=== PATIENT | male | born 1960 | race Caucasian/White ===

== ENCOUNTER → 2017-11-09 10:01 | Outpatient (CLI) | payer OTHER, SELFPAY | PROVIDERS: Referring Provider Dermatology Pediatric Dermatology; Visit Provider Dermatology Pediatric Dermatology | DX: L01.01 Non-bullous impetigo (principal); D48.5 Neoplasm of uncertain behavior of skin | CPT/HCPCS: 87070; 87077; 87186; 87205 ==

== ENCOUNTER 2020-04-15 13:15 | Observation (INO) | payer OTHER, SELFPAY ==
[2020-04-15 13:17] VITALS: BP 156/84; PULSE 85; RESP 16; TEMP 35.9; O2SAT 97; BMI 35.6
[2020-04-15 13:28] VITALS: BMI 35.6
--- NOTE | 2020-04-15 13:28 | EKG12_ITS ---
Test Reason : Blood Pressure : / mmHG Vent. Rate : 070 BPM Atrial Rate : 070 BPM P-R Int : 194 ms QRS Dur : 106 ms QT Int : 392 ms P-R-T Axes : 044 009 019 degrees QTc Int : 423 ms Normal sinus rhythm Normal ECG Confirmed by FÁTIMA ABERNATHY, ENID ([id number]), multimedia editor SUDHEER DOE ([id number]) on 04/17/2020 10:59:43 AM Referred By: JACKIE Confirmed By:ENID SHINE MD
--- NOTE | 2020-04-15 13:28 | CT_ITS ---
STUDY: CT BRAIN WITHOUT CONTRAST REASON FOR EXAM: Male, 59 years old. tremors RADIATION DOSAGE (If Supplied By Facility): CTDIvol = ( 60.81 ) mGy, DLP = ( 1067.08 ) mGycm TECHNIQUE: Transaxial CT imaging of the brain was performed without administration of intravenous contrast material. Individualized dose optimization techniques were used for this CT. COMPARISON: No relevant priors. FINDINGS: Normal soft tissue structures. Normal calvarium. Normal size ventricles and extra-axial spaces for the patient''s age. Normal white matter tracts of the cerebral hemispheres. Normal basal ganglia and thalami. Normal brainstem. Normal cerebellum. There is no intracranial hemorrhage. There are no findings of an acute ischemic infarction. Normal visualized paranasal sinuses. CT/Brain/Head without Contrast IMPRESSION: Normal unenhanced CT scan of the brain. Electronically Signed: Jaun Islas MD at 14:38 EST Tel , Service support ,
--- NOTE | 2020-04-15 13:30 | ED.DCSUM_ITS ---
History of Present Illness Chief Complaint: Neuro S/Sx Informant: Patient Onset: Days Context: Gradual Onset Timing: Intermittent Current Severity: Moderate Maximum Severity: Severe Narrative: The patient is a 59-year-old male with medical history significant for hypertension and diabetes who presents to the emergency department with repetitive involuntary muscle contraction. He states that for the past few months, he will get intermittent jerking of his upper extremities. He states it is rhythmic but will never generalized. He states it comes at different times. He did see the nurse practitioner for his primary care last week. He was given clonazepam. He states he takes it sometimes, but it does not seem like it helps. He states today, he was at work and he got more repetitive. He states that he does feel almost like his arms are weak and clumsy. He denies headache or visual change. He denies weight loss or night sweats. He denies trouble speaking or swallowing. Prior similar symptoms: Yes Recent Illness/Hospitalization: No Past Medical History - Allergies and Home Meds Allergies/Adverse Reactions: Allergies No Known Allergies Allergy (Verified 04/15/20 13:18) Primary Care Physician: Gerard Matthew ASSESSMENT RN, ASSESSMENT RN-C [Primary Care Provider] - Prior records reviewed: Yes Past Medical History: - - Diabetes, hypertension Surgical History: noncontributory Smoking Status: Never smoker Review of Systems General: Denies: Chills, Fever, Sweats Eyes: Denies: Visual changes - bilaterally, Diplopia ENT: Denies: Rhinorrhea, Sore throat Cardiovascular: Denies: Chest pain, Palpitations Respiratory: Denies: Dyspnea, Cough, Dyspnea on exertion Gastrointestinal: Denies: Abdominal pain, Nausea, Vomiting, Diarrhea, Melena, Hematochezia Genitourinary: Denies: Dysuria, Hematuria, Frequency Musculoskeletal: Denies: Back pain, Extremity Pain Skin: Denies: Rash, Wounds Neurological: Reports: Weakness, Parasthesia. Denies: Headache, Numbness Physical Exam Vital Signs/Narrative: Vital Signs Temp Pulse Resp BP Pulse Ox 04/15/20 13:17 96.6 F L 85 16 156/84 H 97 Inital Vital Signs reviewed: Yes General: Well nourished, Well developed, No Acute Distress Head: Normocephalic, Atraumatic Eyes: Perrl, EOMI ENT: Moist mucous membranes, No rhinorrhea Neck: Supple, Nontender Cardiovascular: Regular rate, Regular rhythm, No murmurs Respiratory: No distress, CTA bilaterally, Chest nontender Abdomen: Soft, Nontender, Nondistended, Normal bowel sounds Back: Nontender, Normal Inspection Extremities: Nontender, No edema Skin: Normal color, No rash Neurological: Alert, Oriented x3, Cranial nerves II-XII grossly intact, Normal Strength, Normal Sensation Psychological: Normal affect, Normal Mood Diagnostic/Tx/Re-eval Abnormal Lab Results 04/15/20 04/15/20 13:37 13:37 WBC 7.6 RBC 4.53 L Hgb 12.7 L Hct 39.3 L MCV 86.8 MCH 28.0 MCHC 32.3 RDW Std Deviation 41.4 RDW Coeff of Ada 13.2 Plt Count 287 MPV 9.4 Immature Gran % (Auto) 0.300 Neut % (Auto) 66.0 Lymph % (Auto) 22.8 [place] % (Auto) 6.4 Eos % (Auto) 4.1 Baso % (Auto) 0.4 Absolute Neuts (auto) 5.0 Absolute Lymphs (auto) 1.72 Nucleated RBC % 0 Sodium 138 Potassium 4.3 Chloride 108 H Carbon Dioxide 24.0 Anion Gap 6 BUN 19 H Creatinine 1.11 Estim Creat Clear Calc 82.28 Est GFR (MDRD) Af Amer 87 Est GFR (MDRD) Non-Af 72 BUN/Creatinine Ratio 17.1 Glucose 145 H Calcium 8.6 Magnesium 1.8 Total Bilirubin 0.50 AST 18 ALT 21 Alkaline Phosphatase 59 Total Protein 6.5 Albumin 3.7 Globulin 2.8 Albumin/Globulin Ratio 1.3 - Medical Decision Making Patient has been having tremor for a few months, but it is increased in frequency and duration. He is hyperreflexic in his upper extremities. He also gets feelings of weakness. Metabolic work-up was pursued and was unremarkable. Noncontrast head CT reviewed by myself shows no acute or normality. Final radiology read is pending. I do have concern for underlying neurologic disorder. The patient has had increasing weakness now after these events. I do feel that he would benefit from observation for MRI of his head and neck. Patient was discussed with the hospitalist. Impression 1. Bilateral upper extremity weakness ED Disposition - Plan for ED Patient: Referrals: Gerard Matthew ASSESSMENT RN, ASSESSMENT RN-C [Primary Care Provider] -
[2020-04-15 13:48] LABS: Absolute Lymphocyte Count 1.72 X10^3/uL (0.83-4.51); Basophil# 0.03 X10^3/uL; Basophil% 0.4 % (0-1); Eosinophil# 0.31 X10^3/uL; Eosinophils% 4.1 % (0-5); Hematocrit 39.3 % (40-54); Hemoglobin 12.7 g/dL (13.0-16.5); Lymphocyte # 1.72 X10^3/ul (4.0); Lymphocyte % 22.8 % (19-41); Mean Corp Hgb Conc 32.3 g/dL (32-36); Mean Corpuscular Volume 86.8 fL (80-94); Mean Platelet Vol. 9.4 fl (6.2-12.0); Monocyte# 0.48 X10^3/uL; Monocyte% 6.4 % (0-10); NRBC Flagged by Analyzer 0 % (0-5); Neutrophil # 4.99 X10^3/uL (2.7-7.7); Platelet Count 287 K/mm3 (150-450); RBC Distribution Width CV 13.2 % (11.6-14.6); RBC Distribution Width SD 41.4 fl (35.1-43.9); Red Blood Count 4.53 M/mm3 (4.6-6.2); White Blood Count 7.6 K/mm3 (4.4-11.0)
--- NOTE | 2020-04-15 13:55 | RAD_ITS ---
STUDY: X-RAY CHEST REASON FOR EXAM: Male, 59 years old. sob TECHNIQUE: Single AP portable view of the chest. COMPARISON: None. FINDINGS: The lungs are clear and expanded. There is no demonstrated pleural abnormality. Normal size heart. Normal mediastinum and josesito. Normal visualized pulmonary arteries. Normal visualized aortic arch and descending thoracic aorta. There are diffuse degenerative changes of the visualized thoracic spine. There is degenerative osteoarthritis of the bilateral shoulders. There is no demonstrated abnormality of the visualized soft tissue structures of the upper abdomen. RAD/Chest 1 View (Portable) IMPRESSION: Degenerative changes, as described above. No demonstrated acute cardiopulmonary process. Electronically Signed: Jaun Islas MD at 14:43 EST Tel , Service support ,
[2020-04-15 14:04] LABS: ALB/GLOB Ratio 1.3 RATIO (0.9-2.4); AST(SGOT) 18 U/L (15-37); Alanine Aminotransfer ALT/SGPT 21 U/L (16-61); Albumin, Serum 3.7 g/dL (3.2-5.0); Alkaline Phosphatase 59 U/L (45-117); Anion Gap 6 (5-15); BUN 19 mg/dL (7-18); BUN/Creat Ratio 17.1 RATIO (10-20); Calcium,Total 8.6 mg/dL (8.5-10.1); Chloride 108 mmol/L (98-107); Creatinine, Serum 1.11 mg/dL (0.70-1.30); EST Glomerular Filtration Rate 72 mL/min (>60); Est Glom Filt Rate - Afr Amer 87 mL/min (>60); Estimated Creatinine Clearance 82.28 ml/min; Globulin 2.8 g/dL (2.2-4.2); Glucose 145 mg/dL (74-106); Magnesium 1.8 mg/dL (1.6-2.6); Potassium 4.3 mmol/L (3.5-5.1); Protein, Total 6.5 g/dL (6.4-8.2); Sodium Level 138 mmol/L (136-145)
[2020-04-15 15:15] VITALS: BP 136/77; PULSE 72; RESP 15; TEMP 36.6; O2SAT 95
--- NOTE | 2020-04-15 15:27 | MRI_ITS ---
STUDY: MRI BRAIN WITHOUT CONTRAST REASON FOR EXAM: Male, 59 years old. UE weakness TECHNIQUE: Standardized multiplanar fat and water weighted pulse sequences were obtained. COMPARISON: CT brain 04/15/2020 FINDINGS: There is mild cerebral atrophy with widening of the extra-axial spaces and ventricular dilatation. Normal white matter tracts of the supratentorial brain. There is no evidence for recent intracranial ischemia or other cause of cytotoxic edema on diffusion weighted imaging (DWI). Normal bilateral basal ganglia. Normal thalami. There is no extra-axial fluid accumulation. Normal flow voids within the major intracranial circulation suggesting patency by spin echo criteria. Normal sella turcica, pituitary gland, infundibular stalk, optic chiasm and hypothalamus. Normal tectal plate and pineal gland. Normal midbrain, herson and medulla. Normal cerebellum. Normal basal cisterns. Normal bilateral temporal bones. Normal bilateral internal auditory canals. No demonstrated orbital abnormality, within the constraints of a routine brain study. Normal visualized paranasal sinuses. Normal calvarium and skull base. Normal visualized soft tissue structures. Normal visualized upper cervical spine. MRI/Brain without Contrast IMPRESSION: Involutional changes of the brain, as described above. Electronically Signed: Raphael Sellers MD at 23:09 EST , Service support ,
--- NOTE | 2020-04-15 15:27 | MRI_ITS ---
STUDY: MRI CERVICAL SPINE WITHOUT CONTRAST REASON FOR EXAM: Male, 59 years old. UE weakness TECHNIQUE: Standardized fat and water weighted pulse sequences were obtained in the sagittal and axial planes. COMPARISON: None FINDINGS: Normal foramen magnum and brainstem-cervical cord junction. Normal craniovertebral junction. Normal anterior atlantoaxial articulation. Normal odontoid process. Normal cervical lordosis. Normal vertebral bodies and posterior osseous elements. C2-3: Normal endplates. Normal disc height, signal and morphology. Normal central canal and intervertebral neural foramina. C3-4: Normal endplates. Normal disc height, signal and morphology. Normal central canal and intervertebral neural foramina. C4-5: Normal endplates. Normal disc height, signal and morphology. Normal central canal and intervertebral neural foramina. C5-6: Spondylitic endplates. Normal disc height, signal and morphology. Normal central canal and intervertebral neural foramina. C6-7: Spondylitic endplates. Normal disc height, signal and morphology. Normal central canal and mild narrowing bilateral intervertebral neural foramina. C7-T1: Normal endplates. Normal disc height, signal and morphology. Normal central canal and intervertebral neural foramina. Normal cervical cord. Normal visualized soft tissue structures. MRI/Spine Cervical (Routine) IMPRESSION: Mild bilateral neural foraminal narrowing C6-7 and spondylosis Electronically Signed: Raphael Sellers MD at 20:35 EST , Service support ,
[2020-04-15 15:32] VITALS: BP 150/76; PULSE 72; RESP 16; TEMP 36.1; O2SAT 99
[2020-04-15 15:34] VITALS: BMI 34.9
[2020-04-15 15:41] VITALS: BMI 35.0
--- NOTE | 2020-04-15 15:42 | PCM.HP.STD ---
Problem List (1) Twitching Status: Acute (2) Diabetes Status: Chronic (3) Depression Status: Chronic (4) GERD (gastroesophageal reflux disease) Status: Chronic (5) RLS (restless legs syndrome) Status: Chronic (6) Hyperlipemia Status: Chronic (7) HTN (hypertension) Status: Chronic History of Present Illness Date of Admission: 04/15/20 Mr. Wick is a 59 year old WM with a past medical history of diabetes who was maintained on an insulin pump and oral medications, pretension, hyperlipidemia, GERD, restless leg syndrome, depression and anxiety who presented to the emergency department [facility] in 04/15/2020 complaint of bilateral predominantly upper extremity rhythmic muscle twitching. He states that he has been having issues with this for approximately 2 months he states that it is completely involuntary and has disrupted his sleep at times. He states that in the last 2 months got worse; initially his symptoms were only occurring when he lie down to go bed at night but as of recently it has been happening periodically throughout the day and is disrupting his daily life. He states that it is predominately upper extremity the rhythmic and repetitive muscle jerking. Usually happens when he is at rest. He has no prodrome. He was seen by a nurse practitioner at his PCPs office and was told that they were initiating a statin neurology consult but that was approximately a week ago and nothing has been set up as of yet. He has had no other work-up for this. 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 He states he has noticed a little bit of balance issues when he is drying his head off in the shower and has to rest his arm against the wall to maintain balance. He does admit to history of neuropathy in his feet. On exam he had no significant sensory deficits bilateral feet. His vital signs in the emergency department show a mild hypertension with blood pressures systolic 150s. His laboratory data was overall unremarkable. A CK was done and was within normal limits. His EKG was normal sinus rhythm without any ST-T wave changes. A CT of his head was performed and was normal. Chest x-ray was performed to rule out any other intrathoracic issues that could be leading to this etiology and it was negative as well. He will be admitted to [facility] for further neurological work-up to include MRI of head and neck and an EEG. Past Medical History Past Medical History (Chronic Problems): Chronic Problems Diabetes (Chronic) Depression (Chronic) GERD (gastroesophageal reflux disease) (Chronic) RLS (restless legs syndrome) (Chronic) Hyperlipemia (Chronic) HTN (hypertension) (Chronic) Allergies No Known Allergies Allergy (Verified 04/15/20 13:18) Home Medications: Ambulatory Orders Medication Instructions Recorded Citalopram [Celexa] 40 mg PO DAILY 04/15/20 Clonazepam 0.5 mg PO QHS 04/15/20 Dapagliflozin Propanediol [Farxiga] 10 mg PO DAILY 04/15/20 Enalapril Maleate 20 mg PO DAILY 04/15/20 Insulin Lispro [Humalog Kwikpen] 50 - 75 unit INFILT DAILY 04/15/20 Lansoprazole 15 mg NG DAILY 04/15/20 Metformin HCl [Metformin HCl ER] 1,500 mg PO DAILY 04/15/20 Metformin HCl [Metformin HCl ER] 500 mg PO DAILY 04/15/20 Pramipexole Di-HCl [Mirapex] 1 mg PO QHS 04/15/20 Simvastatin 40 mg PO QHS 04/15/20 Trazodone HCl 100 mg PO QHS 04/15/20 Surgical History: noncontributory Psychiatric History: Anxiety, Depression Lives: Spouse/ Significant Other Smoking Status: Never smoker Tobacco Use: Non-smoker Alcohol: Rare Drugs: None - *Family History Maternal History Items: No pertinent history, - - Of seizures or neuromuscular disorders Paternal History Items: No pertinent history, - - History of seizures or neuromuscular disorders Review of Systems Constitutional: Denies: Anorexia, Chills, Fever, Night Sweats, Malaise, Weakness, Weight Change, Fatigue Eyes: Denies: Blurred vision, Cataracts, Conjunctivae Inflammation, Double vision, Drainage, Eyelid Inflammation, Pain, Redness, Vision Change HEENT: Denies: Difficulty Hearing, Difficulty Swallowing, Ear Pain, Eye Pain, Head Aches, Nasal bleeding, Nasal Congestion, Post Nasal Drip, Sinus Congestion, Sinus Drainage, Sore Throat, Visual Changes Cardiovascular: Denies: Chest Pain, Claudication, Chest Pressure, Chest Tightness, Edema, Heaviness, Light Headedness, Orthopnea, Palpitations, Paroxysmal Noc. Dyspnea, Syncope Respiratory: Denies: Cough, Hemoptysis, Pleuritic Pain, Shortness of Breath, Shortness of breath at rest, Shortness of breath upon exertion, Sputum production, Wheezing Gastrointestinal: Denies: Abdominal Pain, Constipation, Diarrhea, Dyspepsia, Hematemesis, Hematochezia, Nausea, Melena, Vomiting Genitourinary: Denies: Dysuria, Frequency, Hesitancy, Incontinence, Nocturia, Retention, Urgency Musculoskeletal: Denies: Back Pain, Joint Pain, Joint stiffness, Joint swelling, Joint Tenderness, Muscle pain, Neck Pain Skin: Denies: Dryness, Jaundice, Lesions, Pruritis, Rash, Skin Changes, Wounds Neurological: Reports: Balance problems. Denies: Blurred vision, Double vision, Change in Speech, Slurred speech, Confusion, Difficulty swallowing, Focal weakness, Headaches, Incoordination, Numbness, Tingling, Tremor, Seizures Psychiatric: Reports: Anxiety, Depression Endocrine: Denies: Change in Body Habitus, Heat/ Cold Intolerance, Polydipsia, Polyuria Hematologic/ Lymphatic: Denies: Adenopathy, Anemia, Easy Bruising, Easy Bleeding, Petechiae, Purpura VTE Information - Inpt Only VTE Present on Admission: No VTE Mechan Device Prophylaxis: SCD's VTE Pharm Prophylaxis ordered?: Yes Patient Problems: Active and Suspected Problems Twitching (Acute) - Physical Exam Vitals/I&O's: Vital Signs Temp Pulse Resp BP Pulse Ox 96.9 F L 72 16 150/76 H 99 04/15/20 15:32 04/15/20 15:32 04/15/20 15:32 04/15/20 15:32 04/15/20 15:32 Oxygen Delivery Method Room Air Weight: 123.513 kg Body Mass Index (BMI) 34.9 General: Alert, Oriented x3, Cooperative, No apparent distress, Well developed, Well nourished, - - Upper middle-aged white male, sitting up in bed, at bedside HEENT: Atraumatic, PERRLA, EOMI, Normocephalic, EAC Clear Oral: Moist Mucosa, No Gingival or Mucosal Lesions/ Ulcerations, - - Mallampati 3, good dentition Neck: Supple, No JVD, Negative Carotid Bruits, Negative Hepatojugular Reflux, No Nodes, No Nuchal Rigidity, Trachea Midline, Thyroid Normal Size and Texture Lungs: Clear to auscultation, Normal air movement, No rhonchi, No wheeze, No rales Cardiovascular: Regular rate, Regular Rhythm, Normal S1, Normal S2, No murmurs, No Ectopic Activity, No rub noted, No Gallop Abdomen: Bowel Sounds Present, Soft, Non Tender, Non-Distended, No Hepato-splenomegaly, No hernias noted Extremities: No clubbing, No cyanosis, No edema, Edema Skin: No rashes, No breakdown Musculoskeletal: No Tenderness to Palpation of Joints or Extremities, No Muscle Wasting, Arthritic Changes - bilateral knees and hands Lymphatic: No Cervical, Supraclavicular, or Inguinal Adenopathy Neurological: Cranial nerves II-XII grossly intact, Deep Tendon Reflexes 2+/4 and Symmetrical, Neuro grossly intact, Motor Exam 5/5 strength throughout, Muscle tone normal, Sensory exam intact to light touch and pain, Coordination normal, - - No clonus Psych/Mental Status: Normal Affect, Appropriate Laboratory Results 04/15/20 13:37: WBC 7.6, RBC 4.53 L, Hgb 12.7 L, Hct 39.3 L, MCV 86.8, MCH 28.0, MCHC 32.3, RDW Std Deviation 41.4, RDW Coeff of Ada 13.2, Plt Count 287, MPV 9.4, Immature Gran % (Auto) 0.300, Neut % (Auto) 66.0, Lymph % (Auto) 22.8, [place] % (Auto) 6.4, Eos % (Auto) 4.1, Baso % (Auto) 0.4, Absolute Neuts (auto) 5.0, Absolute Lymphs (auto) 1.72, Nucleated RBC % 0 04/15/20 13:37: Sodium 138, Potassium 4.3, Chloride 108 H, Carbon Dioxide 24.0, Anion Gap 6, BUN 19 H, Creatinine 1.11, Estim Creat Clear Calc 82.28, Est GFR (MDRD) Af Amer 87, Est GFR (MDRD) Non-Af 72, BUN/Creatinine Ratio 17.1, Glucose 145 H, Calcium 8.6, Magnesium 1.8, Total Bilirubin 0.50, AST 18, ALT 21, Alkaline Phosphatase 59, Total Protein 6.5, Albumin 3.7, Globulin 2.8, Albumin/Globulin Ratio 1.3 04/15/20 13:37: Total Creatine Kinase Pending Current Medications Acetaminophen (Acetaminophen 325 Mg Tablet) 650 mg PO Q6H PRN PRN PRN Reason: Pain Score 1-10/Temp > 100.7 F Al Hydroxide/Mg Hydroxide (Mag Hydrox/Al Hydrox/Simeth 30 Ml Udc) 30 ml PO Q6H PRN PRN PRN Reason: Gastric Burning Albuterol Sulfate (Albuterol 2.5 Mg/3 Ml Vial.Neb.) 2.5 mg INHALATION Q2H PRN PRN PRN Reason: Shortness of Breath/Wheezing Enoxaparin Sodium (Enoxaparin 40 Mg/0.4 Ml Syringe) 40 mg SC DAILY HEATHER Levetiracetam (Levetiracetam 500 Mg Tablet) 500 mg PO X1 ONE Stop: 04/15/20 15:28 Melatonin (Melatonin 3 Mg Tablet) 3 mg PO QHS PRN PRN PRN Reason: INSOMNIA Ondansetron HCl (Ondansetron 4 Mg/2 Ml Vial) 4 mg IV Q8H PRN PRN PRN Reason: NAUSEA/VOMITING Senna/Docusate Sodium (Senna/Docusate Sodium 1 Tablet) 2 tablet PO BID PRN PRN PRN Reason: Constipation Sodium Chloride (0.9% Saline Lock 10 Ml Syringe) 10 - 40 ml IV UD PRN PRN Reason: SALINE FLUSH Assessment/Plan All Active Problems Twitching (Acute) Intermittent bilateral upper and lower extremity muscle twitching -CT head done in the emergency room was unremarkable -Chest x-ray shows no signs of acute intrathoracic process -Her overall unremarkable -Check EEG -Check MRI of brain and cervical spine -Start Keppra 500 mg twice daily for now -Hold clonazepam started by his PCP approximately 1 week ago--> patient states is not effective -Consult SOC neurology DM-2 -Patient follows with endocrinology at [facility] -Continue home insulin pump -Continue home Metformin -Continue Farxiga -Check A1c Hypertension -Continue enalapril Hyperlipidemia -Continue simvastatin GERD -Continue PPI Restless leg syndrome -Continue Mirapex 1 mg nightly Depression -Continue Celexa 40 mg daily -Continue trazodone Obesity -Recommend weight loss -BMI 35 DVT prophylaxis -SCDs -Lovenox CODE STATUS -Full code Inpatient E&M: 40372 Init Hosp L3
[2020-04-15 15:44] LABS: CPK Total, Creatine Kinase 153 U/L (39-308)
[2020-04-15] MEDS: levETIRAcetam 500 MG Tablet PO ×2 (16:04→22:13)
--- NOTE | 2020-04-15 18:40 | NURSING ---
SOC neuro notified of pt being at MRI this evening and requesting a time to be assessed. Pt will be seen between 0800 and 1100 on 04/16/20. Pt and made aware of time.
[2020-04-15 19:59] VITALS: BP 136/81; PULSE 65; RESP 18; TEMP 36.6; O2SAT 95
[2020-04-15] MEDS: metFORMIN (XR) 500 MG Tablet 1500 MG PO (22:11)
[2020-04-15] MEDS: Atorvastatin Calcium 20 MG Tablet PO (22:12)
[2020-04-15] MEDS: traZODone 50 MG Tablet 100 MG PO (22:12)
[2020-04-15] MEDS: Pramipexole Di-HCl 1 MG Tablet PO (22:13)
[2020-04-16 02:20] VITALS: BP 148/82; PULSE 76; RESP 18; TEMP 36.5; O2SAT 96
[2020-04-16 06:24] LABS: Prothrombin Time (Protime)PT. 12.7 SECONDS (11.7-14.9)
[2020-04-16 06:48] LABS: Anion Gap 6 (5-15); BUN 15 mg/dL (7-18); BUN/Creat Ratio 15.5 RATIO (10-20); Chloride 112 mmol/L (98-107); Creatinine, Serum 0.97 mg/dL (0.70-1.30); EST Glomerular Filtration Rate 84 mL/min (>60); Est Glom Filt Rate - Afr Amer 102 mL/min (>60); Estimated Creatinine Clearance 94.16 ml/min; Glucose 48 mg/dL (74-106); Magnesium 2.1 mg/dL (1.6-2.6); Potassium 4.3 mmol/L (3.5-5.1); Sodium Level 144 mmol/L (136-145); Thyroid Stim Hormone (TSH) 1.51 uIU/mL (0.358-3.74)
[2020-04-16] MEDS: metFORMIN (XR) 500 MG Tablet PO (08:05)
[2020-04-16 08:32] VITALS: BP 149/71; PULSE 72; RESP 18; TEMP 36.4; O2SAT 98
--- NOTE | 2020-04-16 10:35 | TELEMED_ITS ---
SOC Telemed has confirmed receipt of a request for visit. This document confirms receipt of the order initiating the consult. To find the results of the consultation, please view the patient's reports for the scanned Telemed Consult.
[2020-04-16] MEDS: Enoxaparin 40 MG/0.4 ML Syringe SC (11:14)
[2020-04-16] MEDS: Empagliflozin 25 MG Tablet PO (11:15)
[2020-04-16] MEDS: Citalopram 40 MG TABLET PO (11:16)
[2020-04-16] MEDS: Lisinopril 20 MG Tablet PO (11:16)
[2020-04-16] MEDS: Pantoprazole Sodium 20 MG Tablet PO (11:16)
[2020-04-16] MEDS: Insulin Basal Pump SC (11:17)
[2020-04-16] MEDS: levETIRAcetam 500 MG Tablet PO (11:23)
--- NOTE | 2020-04-16 14:13 | PCM.DC ---
- Discharge Diagnoses Current Active Problems: Current Active and Chronic Problems Twitching (Acute) Diabetes (Chronic) Depression (Chronic) GERD (gastroesophageal reflux disease) (Chronic) RLS (restless legs syndrome) (Chronic) Hyperlipemia (Chronic) HTN (hypertension) (Chronic) You will use the following diet at home:: Other - resume home diet Your food should be the consistency of: Regular Your liquids should be the consistency of: Regular/Thin Discharge Activity: Return to Normal Activity Weight Bearing Status: Full weight bearing Additional Instructions: Pulmonary medicine will call you to schedule appointment for sleep study Allergies/Adverse Reactions: Allergies No Known Allergies Allergy (Verified 04/15/20 13:18) Medications to take at Discharge Citalopram [Celexa] 40 mg PO DAILY 04/15/20 Dapagliflozin Propanediol [Farxiga] 10 mg PO DAILY 04/15/20 Enalapril Maleate 20 mg PO DAILY 04/15/20 Insulin Lispro [Humalog Kwikpen U-200] 50 - 75 unit INFILT DAILY 04/15/20 Lansoprazole 15 mg NG DAILY 04/15/20 Metformin HCl [Metformin HCl ER] 1,500 mg PO DAILY 04/15/20 Metformin HCl [Metformin HCl ER] 500 mg PO DAILY 04/15/20 Simvastatin 40 mg PO QHS 04/15/20 Trazodone HCl 100 mg PO QHS 04/15/20 Clonazepam 0.5 mg PO QHS #20 tablet 04/16/20 Gabapentin [Neurontin] 200 - 300 mg PO QHS #60 cap 04/16/20 Pramipexole Di-HCl [Mirapex] 0.5 mg PO UD #0 04/16/20 The following prescriptions were given: Clonazepam 0.5 mg PO QHS #20 tablet Transmission Status: Received by [facility]/pharmacy #[id number] Gabapentin [Neurontin] 200 - 300 mg PO QHS #60 cap Transmission Status: Pending to [facility]/pharmacy #[id number] Primary Care Physician: Gerard Matthew LIVESTOCK FARMER, LIVESTOCK FARMER-C [Primary Care Provider] - Please follow up with your Primary Care Physician in: in 2-3 weeks Test Results: Test results from this visit will be discussed in further detail at your follow-up appointment, if applicable.
--- NOTE | 2020-04-16 15:00 | PHA.DC.MC ---
Pharmacy Service has performed discharge medication reconciliation and counseling for this patient. 1. GABAPENTIN 200-300MG PO QHS The patient's discharge medication list was reviewed for discrepancies and discrepancies were resolved. Home Medications Citalopram [Celexa] 40 mg PO DAILY 04/15/20 Dapagliflozin Propanediol [Farxiga] 10 mg PO DAILY 04/15/20 Enalapril Maleate 20 mg PO DAILY 04/15/20 Insulin Lispro [Humalog Kwikpen U-200] 50 - 75 unit INFILT DAILY 04/15/20 Lansoprazole 15 mg NG DAILY 04/15/20 Metformin HCl [Metformin HCl ER] 1,500 mg PO DAILY 04/15/20 Metformin HCl [Metformin HCl ER] 500 mg PO DAILY 04/15/20 Simvastatin 40 mg PO QHS 04/15/20 Trazodone HCl 100 mg PO QHS 04/15/20 Clonazepam 0.5 mg PO QHS #20 tab 04/16/20 Gabapentin [Neurontin] 200 - 300 mg PO QHS #60 cap 04/16/20 Pramipexole Di-HCl [Mirapex] 0.5 mg PO UD #0 04/16/20 The patient was counseled on the following discharge medications and changes in medications for homegoing were reviewed. The Reason for Use, instructions for use, and potential side effects were reviewed for all new medications. The patient's questions regarding all of their medications were answered. The patient was able to verbally demonstrate an understanding of their discharge medications.
[2020-04-16 16:25] VITALS: BP 133/81; PULSE 73; RESP 18; TEMP 36.8; O2SAT 98
--- NOTE | 2020-04-17 19:03 | PCM.DC.SUM ---
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 #2 type 2 diabetes #3 restless leg syndrome #4 Central hypertension #6 chronic depression #7 hyperlipidemia - Secondary Discharge Diagnosis Chronic Problems: Chronic Problems Diabetes (Chronic) Depression (Chronic) GERD (gastroesophageal reflux disease) (Chronic) RLS (restless legs syndrome) (Chronic) Hyperlipemia (Chronic) HTN (hypertension) (Chronic) Hospital Course and Treatment Operations: None Procedures: Electroencephalogram Summary of Care Provided: The patient is a 59 year old M was seen in the emergency room at [facility] with a chief complaint of involuntary muscle contraction in his neck and shoulder areas intermittently over the past few months. Patient was seen by his primary care physician and was given Klonopin, he was due to be referred to a neurologist for further evaluation but the patient came to the emergency room for evaluation. Work-up in the emergency room included a CT of the head which showed no acute abnormality, labs were obtained and were remarkable for a BUN of 19 and a blood glucose of 145. Patient was placed into observation status on MedSurg 3, he underwent an MRI scan of the brain which showed no abnormalities, he was seen in consultation by teleneurology who felt that the patient probably had a medication reaction from Mirapex which she took for restless leg syndrome. Patient is EEG did not show seizure activity. Cervical spine MRI showed mild bilateral neuroforaminal foramen narrowing at C6-C7 and spondylosis. Patient had no recurrence of his movement disorder while in the hospital. On 04/16/2020, patient was seen and examined: On examination he appeared in good health and spirits. Vital signs as documented. Skin warm and dry and without overt rashes. Neck without JVD, neck was supple, trachea midline, thyroid was normal. Lungs clear bilaterally, normal air movement was noted. Heart exam notable for regular rhythm, normal sounds and absence of murmurs, rubs or gallops. Abdomen unremarkable and without evidence of organomegaly, masses, or abdominal aortic enlargement. Bowel sounds are present, abdomen is not distended. Extremities nonedematous, no cyanosis was noted, no clubbing was noted. Neuro: Cranial nerves II through XII are grossly intact, no focal motor deficits were noted, sensation to light touch and pinprick intact, motor exam 5/5 throughout. Psych: Patient is alert and oriented x3, he does not appear anxious or depressed, he does not appear agitated. Patient was discharged home in stable condition on 04/16/2020, adjustments were made on his home-going medications, arrangements were made for him to be seen as an outpatient for evaluation for sleep study at Dr. Poole's office in the next 1 to 2 weeks. I also contacted the patient's PCP-Yash Mehta-and went over the case with him and the patient will be following up with Yash Mehta as an outpatient to monitor the patient's medication adjustments. Patient Problems: Active and Suspected Problems Twitching (Acute) - Physical Exam Vitals/I&O's: Vital Signs Temp Pulse Resp BP Pulse Ox 98.3 F 73 18 133/81 H 98 04/16/20 16:25 04/16/20 16:25 04/16/20 16:25 04/16/20 16:25 04/16/20 16:25 Oxygen Delivery Method Room Air Weight: 123.513 kg Body Mass Index (BMI) 34.9 Intake and Output for Last 24 Hours 04/15/20 04/16/20 04/17/20 23:59 23:59 23:59 Intake Total 1160 / 1160 1200 / 1200 Balance 1160 / 1160 1200 / 1200 Discharge Activity: Return to Normal Activity Weight Bearing Status: Full weight bearing Home Medications: Medications to take at Discharge Citalopram [Celexa] 40 mg PO DAILY 04/15/20 Dapagliflozin Propanediol [Farxiga] 10 mg PO DAILY 04/15/20 Enalapril Maleate 20 mg PO DAILY 04/15/20 Insulin Lispro [Humalog Kwikpen U-200] 50 - 75 unit INFILT DAILY 04/15/20 Lansoprazole 15 mg NG DAILY 04/15/20 Metformin HCl [Metformin HCl ER] 1,500 mg PO DAILY 04/15/20 Metformin HCl [Metformin HCl ER] 500 mg PO DAILY 04/15/20 Simvastatin 40 mg PO QHS 04/15/20 Trazodone HCl 100 mg PO QHS 04/15/20 Clonazepam 0.5 mg PO QHS #20 tab 03/09/21 Gabapentin [Neurontin] 200 - 300 mg PO QHS #60 cap 04/16/20 Pramipexole Di-HCl [Mirapex] 0.5 mg PO UD #0 04/16/20 Following Prescriptions Were Given to Patient: Clonazepam 0.5 mg PO QHS #20 tab Transmission Status: Received by [id number] Gabapentin [Neurontin] 200 - 300 mg PO QHS #60 cap Transmission Status: Received by [id number] Primary Care Physician: Gerard Matthew DOG OR HORSE RACING OFFICIAL, DOG OR HORSE RACING OFFICIAL-C [Primary Care Provider] - Please follow up with your Primary Care Physician in: in 2-3 weeks Disposition: Home Minutes spent on discharge:: 30 Patient Condition:: Stable Medical Necessity - Tobacco Use Smoking Status: Never smoker Tobacco Use: Non-smoker Meaningful Use Info Meaningful Use Diagnoses (Choose all that apply): None applicable OBSV E&M: 21247 Observation care discharge
== END 2020-04-16 16:20 | disposition home or self-care (01) ==
LOC: ED 13:47 → MS3 14:39
PROVIDERS: Admitting Provider Internal Medicine; Emergency Provider Emergency Medicine; PCP Nurse Practitioner Family; Visit Provider Internal Medicine
DX: G25.79 Other drug induced movement disorders (principal); T42.8X5A Adverse effect of antiparkinsonism drugs and other central muscle-tone depressants, initial encounter; E11.9 Type 2 diabetes mellitus without complications; I10 Essential (primary) hypertension; F32.9 Major depressive disorder, single episode, unspecified; K21.9 Gastro-esophageal reflux disease without esophagitis; G25.81 Restless legs syndrome; E78.5 Hyperlipidemia, unspecified; F41.9 Anxiety disorder, unspecified; E66.9 Obesity, unspecified; Z79.899 Other long term (current) drug therapy; Z79.4 Long term (current) use of insulin; Z68.35 Body mass index [BMI] 35.0-35.9, adult
CPT/HCPCS: 36415; 70450; 70551; 71045; 72141; 80048; 80053; 82550; 83735; 84443; 85025; 85610; 93005; 95819; 96372; 97161; 97165; 99218; 99285; J7040; A4216; G0378

== ENCOUNTER → 2020-05-06 19:53 | Outpatient (CLI) | payer OTHER, SELFPAY ==
[2020-04-22 14:10] VITALS: BMI 36.1
== END ==
PROVIDERS: PCP Nurse Practitioner Family; Referring Provider Nurse Practitioner Acute Care; Visit Provider Nurse Practitioner Acute Care
DX: G47.33 Obstructive sleep apnea (adult) (pediatric) (principal)
CPT/HCPCS: 95810

== ENCOUNTER → 2020-05-27 20:14 | Outpatient (CLI) | payer OTHER, SELFPAY ==
[2020-04-22 14:10] VITALS: BMI 36.1
== END ==
PROVIDERS: PCP Nurse Practitioner Family; Visit Provider Nurse Practitioner Acute Care
DX: G47.33 Obstructive sleep apnea (adult) (pediatric) (principal)
CPT/HCPCS: 95811

== ENCOUNTER → 2020-06-11 09:05 | Outpatient (CLI) | payer OTHER, SELFPAY ==
[2020-04-22 14:10] VITALS: BMI 36.1
== END ==
PROVIDERS: PCP Nurse Practitioner Family; Visit Provider Nurse Practitioner Acute Care
DX: Z46.89 Encounter for fitting and adjustment of other specified devices (principal)

== ENCOUNTER 2021-03-14 15:55 | Outpatient (CLI) | payer OTHER, SELFPAY ==
--- NOTE | 2021-03-14 16:02 | EKG12_ITS ---
Test Reason : PREOP Blood Pressure : / mmHG Vent. Rate : 062 BPM Atrial Rate : 062 BPM P-R Int : 192 ms QRS Dur : 106 ms QT Int : 416 ms P-R-T Axes : 052 023 034 degrees QTc Int : 422 ms Normal sinus rhythm Normal ECG Confirmed by RICK ABERNATHY, ANGELINA ([id number]), editor managing newspaper SUDHEER DOE ([id number]) on 03/17/2021 12:58:30 PM Referred By: Amanuel Kimble Confirmed By:ANGELINA CABRERA MD
== END 2021-03-14 23:59 | disposition home or self-care (01) ==
LOC: PSN 16:01
PROVIDERS: PCP Nurse Practitioner Family; Referring Provider Otolaryngology; Visit Provider Otolaryngology
DX: Z01.810 Encounter for preprocedural cardiovascular examination (principal)
CPT/HCPCS: 93005

== ENCOUNTER → 2021-11-07 | Outpatient (CLI) | payer OTHER, SELFPAY | END | disposition home or self-care (01) | LOC: LAB 16:27 | PROVIDERS: PCP Nurse Practitioner Family; Referring Provider Otolaryngology; Visit Provider Otolaryngology | DX: H92.10 Otorrhea, unspecified ear (principal) | CPT/HCPCS: 87070; 87075; 87077; 87186; 87205 ==

== ENCOUNTER 2022-02-10 15:18 | Emergency (ER) | payer OTHER, SELFPAY ==
[2022-02-10 15:19] VITALS: PULSE 90; RESP 17; TEMP 36.4; O2SAT 97; BMI 37.3
--- NOTE | 2022-02-10 17:11 | EDS_ITS ---
HPI <VERNA Owen - Last Filed: 02/10/22 20:23> History of Present Illness Chief Complaint: Other, Pain/Inj Narrative Narrative: Patient presents today with an abscess under his right armpit that he has had since 2-3 days before . 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 He is having some purulent drainage from the area. No history of abscesses. Patient does have a history of diabetes. He denies injury to the area, fever, and chills. PFS <VERNA Owen - Last Filed: 02/10/22 20:23> [facility] Medical History (Updated 02/10/22 @ 22:[address] Erick Marin MD) Depression Diabetes GERD (gastroesophageal reflux disease) HTN (hypertension) Hyperlipemia Rectal fistula RLS (restless legs syndrome) Twitching Home Medications citalopram 40 mg tablet 40 mg PO DAILY depression 04/15/20 [History Last Taken 04/15/20] dapagliflozin 10 mg tablet 10 mg PO DAILY 04/15/20 [History Last Taken 04/15/20] enalapril maleate 20 mg tablet 20 mg PO DAILY heart 04/15/20 [History Last Taken 04/15/20] insulin lispro 200 unit/mL (3 mL) subcutaneous pen 50 - 75 unit Infiltration DAILY 04/15/20 [History Last Taken 04/15/20] lansoprazole 15 mg capsule,delayed release 15 mg NG DAILY 04/15/20 [History Last Taken 04/15/20] metformin 500 mg tablet,extended release 24 hr 1,500 mg PO DAILY dm 04/15/20 [History Last Taken 04/14/20] metformin 500 mg tablet,extended release 24 hr 500 mg PO DAILY dm 04/15/20 [History Last Taken 04/15/20] simvastatin 40 mg tablet 40 mg PO QHS cholesterol 04/15/20 [History Last Taken 04/14/20] trazodone 50 mg tablet 100 mg PO QHS sleep 04/15/20 [History Last Taken 0 04/14/20] clonazepam 0.5 mg tablet 0.5 mg PO QHS anxiety #20 tabs 04/16/20 [Rx Last Taken Unknown] gabapentin 100 mg capsule 200 - 300 mg PO QHS #60 caps 04/16/20 [Rx Last Taken Unknown] pramipexole 1 mg tablet 0.5 mg PO UD rls ##0 04/16/20 [Rx Last Taken 04/14/20] baclofen 10 mg tablet 10 mg PO DAILY 07/30/20 [History Last Taken Unknown] cholecalciferol (vitamin D3) 1,250 mcg (50,000 unit) capsule 1,250 mcg PO QWEEK 07/28/21 [History Last Taken Unknown] ropinirole 1 mg tablet 1 mg PO DAILY 07/28/21 [History Last Taken Unknown] doxycycline hyclate 100 mg capsule 100 mg PO BID 5 days #10 caps 02/10/22 [Rx Last Taken Unknown] Allergy/AdvReac Type Severity Reaction Status Date / Time No Known Allergies Allergy Verified 07/28/21 08:14 Family History Father Diabetes CHF (congestive heart failure) Mother Diabetes Brother Diabetes Surgical History History of shoulder surgery History of total left knee replacement (TKR) History of total right knee replacement (TKR) Hx of appendectomy Social History Smoking Status: Never smoker ROS <VERNA Owen - Last Filed: 02/10/22 20:23> ROS ED Constitutional Constitutional ED: Denies chills, fever(s) or sweats Eyes Eyes: Denies blurry vision or change in vision ENT ENT ED: Denies rhinorrhea or sore throat Cardiovascular Cardiovascular: Denies chest pain, palpitations or racing heartbeat Respiratory/Chest Respiratory/Chest: Denies cough, dyspnea or dyspnea on exertion Gastrointestinal Gastrointestinal: Denies abdominal pain, diarrhea, nausea or vomiting Genitourinary Genitourinary ED: Denies dysuria, hematuria or urinary frequency Musculoskeletal Musculoskeletal: Denies arthralgias, myalgias or neck pain Integumentary Reports abscess; Denies Abrasions or rash Neurologic Neurologic: Denies headache(s) or weakness Psychiatric Psychiatric: Denies anxiety, depression or suicidal thoughts EXAM <VERNA Owen - Last Filed: 02/10/22 20:23> Physical Exam Const Vital Signs: 02/10/22 15:19 Temperature 97.6 F L Temperature Source Temporal Pulse Rate 90 Respiratory Rate 17 Pulse Ox 97 Oxygen Delivery Method Room Air Positive well nourished and well developed General Appearance ED: well developed and NAD HEENT atraumatic Eyes PERRL and EOMs intact bilaterally Neck full ROM Chest Wall inspection of chest normal and palpation of chest normal Resp normal respiratory effort and clear to auscultation bilaterally Cardio regular rhythm and no murmurs Rate: regular rate GI non-tender, non-distended and no masses Palpation: soft Extremity full ROM Neuro oriented x3, CN's II-XII intact bilaterally, moves all extremities, no focal motor deficits, no sensory deficits noted and gait normal Motor Exam: strength 5/5 throughout Psych mental status grossly normal and thought process normal Skin skin turgor normal Skin Narrative: Patient has a quarter size abscess under the right armpit with purulent drainage. The area is fluctuant. There is erythema surrounding the area with some streaking. <Dr. Erick Marin MD - Last Filed: 02/10/22 22:14> Physical Exam Const Vital Signs: 02/10/22 15:19 Temperature 97.6 F L Temperature Source Temporal Pulse Rate 90 Respiratory Rate 17 Pulse Ox 97 Oxygen Delivery Method Room Air <Dr. Erick Marin MD - Last Filed: 02/10/22 22:14> Procedures Other Procedures Procedure(s): I&D of right axillary subcutaneous abscess by midlevel and me. [facility] <VERNA Owen - Last Filed: 02/10/22 20:23> [facility] Narrative Medical decision making narrative: I have personally performed a face to face assessment of the patient and have reviewed the BASHIR Note. I performed a substantive portion of the visit including all aspects of the following. My [place] findings include: History is for swelling redness pain right axilla. Patient does have diabetes. States his blood sugars been under control. He denies fever, chills night sweats. Denies a traumatic fever, heart murmur, mitral valve prolapse or being immune suppressed. Exam is patient has a right axillary subcutaneous abscess. This required I&D. Heart is regular. There is no murmur, gallop or rub. Rate is normal. Lungs are clear to auscultation. There is good room air bilaterally. There is no neurovascular mise of the right upper extremity. Medical Decision Making incision and drainage was initially performed by the midlevel. The incision was extended and blunt dissection was undertaken with more purulent material noted. Cavity was irrigated. Wick was placed. Since he is diabetic and there is cellulitis concerned that this may represent MRSA patient was treated with doxycycline 100 mg twice daily for 5 days Other additions or changes: Follow-up with primary care physician for wick removal in 2 to 3 days. Abscess was I&D. Due to his history of diabetes and concerns for cellulitis he was started on doxycycline. He was given a dose of doxycycline here in the ED. He was given Tylenol for pain control. He will be following up with PCP for PICC removal in 2 to 3 days. Patient is comfortable with plan. He will be discharged home and able condition. He is afebrile and vital signs are stable and within normal limits. He is in no acute distress. <Dr. Erick Marin MD - Last Filed: 02/10/22 22:14> [facility] MDM Narrative Medical decision making narrative: I have personally performed a face to face assessment of the patient and have reviewed the BASHIR Note. I performed a substantive portion of the visit including all aspects of the following. My [place] findings include: History is for swelling redness pain right axilla. Patient does have diabetes. States his blood sugars been under control. He denies fever, chills night sweats. Denies a traumatic fever, heart murmur, mitral valve prolapse or being immune suppressed. Exam is patient has a right axillary subcutaneous abscess. This required I&D. Heart is regular. There is no murmur, gallop or rub. Rate is normal. Lungs are clear to auscultation. There is good room air bilaterally. There is no neurovascular mise of the right upper extremity. Medical Decision Making incision and drainage was initially performed by the midlevel. The incision was extended and blunt dissection was undertaken with more purulent material noted. Cavity was irrigated. Wick was placed. Since he is diabetic and there is cellulitis concerned that this may represent MRSA patient was treated with doxycycline 100 mg twice daily for 5 days Other additions or changes: Follow-up with primary care physician for wick removal in 2 to 3 days. Discharge Plan Triage Chief Complaint: Other, Pain/Inj ED Midlevel Provider: Tabatha Rodriguez ED Provider: Erick Marin Dx/Rx/DC Orders Clinical Impression: Abscess, Cellulitis, History of diabetes mellitus Instructions: Abscess Drainage Prescriptions: New doxycycline hyclate 100 mg capsule 100 mg PO BID 5 Days Qty: 10 0RF No Action baclofen 10 mg tablet 10 mg PO DAILY cholecalciferol (vitamin D3) 1,250 mcg (50,000 unit) capsule 1,250 mcg PO QWEEK ropinirole 1 mg tablet 1 mg PO DAILY citalopram 40 MG tablet 40 mg PO DAILY trazodone 50 MG tablet 100 mg PO QHS enalapril maleate 20 MG tablet 20 mg PO DAILY simvastatin 40 MG tablet 40 mg PO QHS lansoprazole 15 MG capsule,delayed release(DR/EC) 15 mg NG DAILY metformin 500 MG tablet extended release 24 hr 500 mg PO DAILY metformin 500 MG tablet extended release 24 hr 1,500 mg PO DAILY dapagliflozin 10 MG tablet 10 mg PO DAILY Label Comments: TAKE 1 TABLET BY MOUTH EVERY DAY insulin lispro 200 UNIT/ML insulin pen 50 - 75 unit INFILT DAILY gabapentin 100 MG capsule 200 - 300 mg PO QHS Qty: 60 0RF Rx Instructions: start out with 200 mg before bedtime nitely, you may increase to 300 mg nitely after 3 days if not effective pramipexole 1 MG tablet 0.5 mg PO UD Qty: 0 0RF Rx Instructions: Take 1/2 pill (.5 mg) at bedtime for one week, then stop clonazepam 0.5 MG tablet 0.5 mg PO QHS Qty: 20 0RF Primary Care Provider: Gerard Matthew NP Referrals: Gerard Matthew NP, [employer] TECHNICIAN-C [Primary Care Provider] - 2 Days for wound check Activity Restrictions/Additional Instructions: Please follow-up with PCP in 2 days for packing removal. They may need to repack the abscess. Please take antibiotics as directed. Please return for worsening symptoms. Disposition Disposition: Home, Self Care Discharge Date/Time: 02/10/22 18:36
[2022-02-10] MEDS: Lidocaine 1% (20 ml mdv) 20 ML Vial 10 ML INFILT (18:27)
[2022-02-10] MEDS: Acetaminophen 325 MG Tablet 650 MG PO (18:33)
[2022-02-10] MEDS: Doxycycline 100 MG CAPSULE PO (18:34)
== END 2022-02-10 18:36 | disposition home or self-care (01) ==
LOC: ED 18:22
PROVIDERS: Emergency Provider Emergency Medicine; PCP Nurse Practitioner Family; Visit Provider Emergency Medicine
DX: L02.413 Cutaneous abscess of right upper limb (principal); E11.9 Type 2 diabetes mellitus without complications; L03.90 Cellulitis, unspecified; I10 Essential (primary) hypertension; E78.5 Hyperlipidemia, unspecified
CPT/HCPCS: 10061; 10060; 99283

== ENCOUNTER → 2022-08-27 | Outpatient (CLI) | payer OTHER, SELFPAY | END | disposition home or self-care (01) | LOC: SL 20:05 | PROVIDERS: PCP Nurse Practitioner Family; Referring Provider Nurse Practitioner Acute Care; Visit Provider Nurse Practitioner Acute Care | DX: G47.33 Obstructive sleep apnea (adult) (pediatric) (principal) | CPT/HCPCS: 95810 ==